=== PATIENT | female | born 1990 | race Caucasian/White ===

== ENCOUNTER → 2020-01-16 17:13 | Outpatient (BNVA) | payer BC, SELFPAY | PROVIDERS: Family Provider Nurse Practitioner Family; PCP Nurse Practitioner Family; Visit Provider Emergency Medicine | DX: J02.9 Acute pharyngitis, unspecified (principal); J45.20 Mild intermittent asthma, uncomplicated; J06.9 Acute upper respiratory infection, unspecified | CPT/HCPCS: 87081; 87880 ==

== ENCOUNTER 2021-04-06 11:51 | Outpatient (CLI) | payer MEDICAID, SELFPAY ==
--- NOTE | 2021-04-06 12:11 | XRR_ITS ---
PROCEDURE INFORMATION: Exam: XR Right Ankle Exam date and time: 04/06/2021 12:19 PM Age: 30 years old Clinical indication: Injury or trauma; Fall; Sprain or strain; Ankle; Right; Injury date: 04/05/21; Additional info: Sprain R ankle TECHNIQUE: Imaging protocol: XR Right ankle. Views: 3 or more views. COMPARISON: No relevant prior studies available. FINDINGS: Bones/joints: Normal. Soft tissues: Normal. XR/XR ankle RT min 3V* [id number] IMPRESSION: No acute findings.
== END 2021-04-06 11:52 | disposition home or self-care (01) ==
LOC: RAD 11:59
PROVIDERS: PCP Registered Nurse; Visit Provider Registered Nurse
DX: S93.401A Sprain of unspecified ligament of right ankle, initial encounter (principal); X58.XXXA Exposure to other specified factors, initial encounter
CPT/HCPCS: 73610

== ENCOUNTER → 2021-07-01 09:49 | Outpatient (BNVA) | payer MEDICAID, SELFPAY | PROVIDERS: PCP Registered Nurse; Visit Provider Nurse Practitioner Family | DX: J06.9 Acute upper respiratory infection, unspecified (principal); Z20.822 Contact with and (suspected) exposure to COVID-19 | CPT/HCPCS: 87635 ==

== ENCOUNTER 2021-07-03 10:11 | Outpatient (CLI) | payer MEDICAID, SELFPAY ==
[2021-07-03 10:51] VITALS: BP 116/89; PULSE 66; RESP 16; TEMP 36.7; O2SAT 97
[2021-07-03 11:48] VITALS: BP 118/82; PULSE 61; RESP 12; TEMP 36.9; O2SAT 99
[2021-07-03 12:35] VITALS: BP 124/91; PULSE 57; RESP 18; TEMP 36.8; O2SAT 98
== END 2021-07-03 13:06 | disposition home or self-care (01) ==
LOC: OPS 10:15
PROVIDERS: PCP Registered Nurse; Visit Provider Nurse Practitioner Family
DX: U07.1 COVID-19 (principal)
CPT/HCPCS: 96365

== ENCOUNTER 2021-08-10 15:01 | Outpatient (CLI) | payer MEDICAID, SELFPAY ==
--- NOTE | 2021-08-10 15:07 | XR_ITS ---
WS: [id number] CHEST 2 VIEWS HISTORY: PERSISTENT SHORTNESS OF BREATH POST COVID 19 COMPARISON: None available. Lungs: Clear with no abnormality. No pleural effusion or pneumothorax. Cardiac size: Normal. Mediastinum/Aorta: Normal mediastinum. Bones: Normal. XR/XR chest 2V* [id number] IMPRESSION: Normal chest.
== END 2021-08-10 15:02 | disposition home or self-care (01) ==
PROVIDERS: PCP Registered Nurse; Visit Provider Registered Nurse
DX: R06.02 Shortness of breath (principal); B94.8 Sequelae of other specified infectious and parasitic diseases
CPT/HCPCS: 71046

== ENCOUNTER → 2022-09-13 13:12 | Outpatient (BNVA) | payer BC, SELFPAY | PROVIDERS: PCP Registered Nurse; Visit Provider Surgery | DX: K92.1 Melena (principal); K21.9 Gastro-esophageal reflux disease without esophagitis | CPT/HCPCS: 99213 ==

== ENCOUNTER 2022-09-15 07:18 | Day surgery (SDC) | payer BC, MEDICAID, SELFPAY ==
[2022-09-14 07:58] VITALS: BMI 31.1
--- NOTE | 2022-09-15 07:39 | W.PM.OPSUD ---
Surgery/Procedure H&P Update DATE OF PROCEDURE: September 15, 2022 DATE H&P PERFORMED: 09/13/22 PLANNED PROCEDURE: Operation Date: 09/15/22 09:00 Proposed Procedures p EGD/colonoscopy [id number],K21.9,K92.1(Not Applicable) - DO [email or web address] Gerber Colonoscopy(Not Applicable) - Benjamin Trivedi DO
[2022-09-15 07:42] VITALS: BP 148/105; PULSE 65; RESP 18; TEMP 36.6; O2SAT 99
[2022-09-15 07:48] LABS: OR HCG Qualitative Urine Negative (Negative)
[2022-09-15] MEDS: sodium chloride 0.9% 1,000 ML 30 ML IV (07:54)
--- NOTE | 2022-09-15 08:45 | ANES.PREANE2 ---
Pre-Anesthetic Assessment Height/Weight: Height 1.68 m Weight 87.543 kg Temp Pulse Resp BP Pulse Ox O2 Del Method 97.9 F 65 18 148/105 99 09/15/22 07:42 09/15/22 07:42 09/15/22 07:42 09/15/22 07:42 09/15/22 07:42 09/15/22 07:42 Operation Date: 09/15/22 09:00 Proposed Procedures p EGD/colonoscopy [id number],K21.9,K92.1(Not Applicable) - Benjamin Trivedi DO s Colonoscopy(Not Applicable) - Benjamin Trivedi DO Familial anesthetic complications: None Was Beta Sam taken within 24 hours: N/A Was Clonidine taken within 24 hours: N/A Last intake: Intake Last Liquid Date 09/14/22 Last Liquid Time 22:30 Last Solid Date 09/13/22 Last Solid Time 18:00 Social No alcohol and No tobacco Exam alert, oriented x 3, clear to auscultation bilaterally and regular rate & rhythm Airway Mallampati: Class II Dentition: full Pulmonary Asthma CV/HEM Hypertension GI Gastroesophageal Reflux Disease Anesthetic Plan ASA status: 2 Anesthesia: MAC Risk of > 500 ml blood loss (7ml/kg in children): No Medications/Allergies Home Medications Medication Instructions Recorded Confirmed Last Taken Type alprazolam 0.25 mg tablet (Xanax) 0.25 mg PO BID 01/16/20 09/15/22 09/15/22 History albuterol 90 mcg/actuation aerosol 90 mcg inhalation PRN PRN Wheezing 07/01/21 09/15/22 Unknown History inhaler metoprolol tartrate 50 mg tablet 50 mg PO DAILY 07/01/21 09/15/22 09/15/22 History pantoprazole 40 mg tablet,delayed 40 mg PO DAILY #30 tabs 09/13/22 09/15/22 Unknown Rx release (Protonix) Allergies Allergy/AdvReac Type Severity Reaction Status Date / Time No Known Allergies Allergy Verified 09/14/22 07:52 Current Medications Generic Name Dose Route Start Last Admin Trade Name Freq PRN Reason Stop Dose Admin Sodium Chloride 1,000 mls @ 30 mls/hr 09/15/22 07:45 09/15/22 07:54 Sodium Chloride 0.9% IV 09/16/22 07:44 30 mls/hr .Q24H XIN Administration PFSH Anesthesia Medical History (Updated 09/13/22 @ 13:55 by Benjamin Trivedi DO) Asthma, mild intermittent, well-controlled GERD (gastroesophageal reflux disease) History of ovarian cyst HTN (hypertension) with goal to be determined Surgical History History of foot surgery History of ovarian cystectomy History of tonsillectomy Family History Father Hypertension Denies family history of Diabetes Dementia Social History Smoking and tobacco status: never smoked Alcohol intake: never Data Anesthesia Cardiac Studies: No Data to Display
[2022-09-15 09:33] VITALS: BP 103/69; PULSE 60; RESP 20; TEMP 36.6; O2SAT 99
[2022-09-15 09:38] VITALS: BP 122/78; PULSE 58; RESP 24; O2SAT 100
[2022-09-15 09:48] VITALS: BP 130/59; PULSE 55; RESP 20; O2SAT 100
--- NOTE | 2022-09-15 13:51 | ANE.PACU2 ---
Inpatient post-anesthesia follow up: Airway intact: Yes Vital signs: Temperature 97.9 F Pulse Rate 55 Respiratory Rate 20 Blood Pressure 130/59 Pulse Oximetry 100 Oxygen Delivery Me thod Room Air Oxygen Flow Rate Fraction of Inspir ed Oxygen Hydration adequate: Yes Nausea and vomiting: No Pain level: 1 Mental status: Baseline
== END 2022-09-15 10:15 | disposition home or self-care (01) ==
PROVIDERS: Anesthesiology; PCP Registered Nurse; Visit Provider Surgery
PROC: 0DJ08ZZ Inspection of Upper Intestinal Tract, Via Natural or Artificial Opening Endoscopic (ICD-10-PCS; CPT 43235; principal; 2022-09-15 09:00)
PROC: 0DJD8ZZ Inspection of Lower Intestinal Tract, Via Natural or Artificial Opening Endoscopic (ICD-10-PCS; CPT 45378; 2022-09-15 09:00)
DX: K92.1 Melena (principal); K21.9 Gastro-esophageal reflux disease without esophagitis; K64.8 Other hemorrhoids; K64.4 Residual hemorrhoidal skin tags; I10 Essential (primary) hypertension; K29.50 Unspecified chronic gastritis without bleeding; B96.81 Helicobacter pylori [H. pylori] as the cause of diseases classified elsewhere
CPT/HCPCS: 43239; 45378; 81025; 84703; 88305; J2704; J3490; J7030